=== PATIENT | male | born 1970 | race Caucasian/White ===

== ENCOUNTER 2019-06-01 22:15 | Emergency (ER) | payer SELFPAY ==
[~2019-06-01] VITALS: Ht 175.3 cm; Wt 81.6 kg
[2019-06-01 22:20] VITALS: BP 121/80
--- NOTE | 2019-06-01 22:20 | NUR ---
TO BED # 06 AMBULATORY
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
[2019-06-01] MEDS ORDERED: LIDOCAINE MPF 1% - 5 mL VIAL 5 ML ONE (22:39)
[2019-06-02] MEDS ORDERED: LIDOCAINE 1% 500 MG/50 ML VIAL INJ SCH (00:15)
[2019-06-02] MEDS ORDERED: BACITRACIN OINT 500 UNITS/GM PKT TP ONE (00:15)
--- NOTE | 2019-06-02 00:35 | NUR ---
PATIENT ELOPED FROM FACILITY. DISCHARGE INSTRUCTIONS NOT GIVEN TO PATIENT. DR. ROBERTSON NOTIFIED.
== END 2019-06-02 00:35 | disposition left against medical advice (07) ==
LOC: MED 22:15
DX: S61.211A Laceration without foreign body of left index finger without damage to nail, initial encounter (principal); I10 Essential (primary) hypertension; F17.210 Nicotine dependence, cigarettes, uncomplicated; W26.8XXA Contact with other sharp object(s), not elsewhere classified, initial encounter; Y93.89 Activity, other specified; Y92.89 Other specified places as the place of occurrence of the external cause; Y99.8 Other external cause status
CPT/HCPCS: 99281; J2001

== ENCOUNTER 2019-08-30 17:01 | Emergency (ER) | payer OTHER ==
[~2019-08-30] VITALS: Ht 170.2 cm; Wt 68.0 kg
[2019-08-30 17:01] VITALS: BP 172/70
[2019-08-30] MEDS ORDERED: IBUPROFEN 400 MG TAB PO ONE (18:25)
[2019-08-30] MEDS ORDERED: ACETAMINOPHEN 325 MG TAB PO ONE (18:25)
[2019-08-30 19:24] VITALS: BP 134/81
== END 2019-08-30 19:17 ==
LOC: MED 17:01
DX: S01.111A Laceration without foreign body of right eyelid and periocular area, initial encounter (principal); S16.1XXA Strain of muscle, fascia and tendon at neck level, initial encounter; S50.312A Abrasion of left elbow, initial encounter; F17.210 Nicotine dependence, cigarettes, uncomplicated; M54.6 Pain in thoracic spine; Z90.89 Acquired absence of other organs; W51.XXXA Accidental striking against or bumped into by another person, initial encounter; Y93.02 Activity, running; Y92.89 Other specified places as the place of occurrence of the external cause; Y99.8 Other external cause status
CPT/HCPCS: 72040; 90471; 90715; 99283

== ENCOUNTER 2021-01-07 09:53 | Emergency (ER) | payer OTHER ==
[~2021-01-07] VITALS: Ht 172.7 cm; Wt 81.6 kg
[2021-01-07 09:58] VITALS: BP 110/82
--- NOTE | 2021-01-07 10:11 | NUR ---
50 YEAR OLD MALE COMPLAINS OF THROAT PAIN ON RIGHT SIDE X 1.5 WEEKS. PATIENT DENIES PRESENCE OF BLOOD, COUGH, SOB. CLEAR LUNG SOUNDS THROUGHOUT, CLEAR TRACHEAL SOUNDS HEARD. AO4, BREATHING EVEN AND UNLABORED, SKIN WARM AND DRY. BED IN LOWEST POSITION, LOCKED, X1 SIDERAIL UP. PMH - DENIED NKA
[2021-01-07] MEDS ORDERED: PENI-321 PO (10:26)
[2021-01-07] MEDS ORDERED: NAPR-54 PO (10:27)
[2021-01-07 10:37] VITALS: BP 110/82
--- NOTE | 2021-01-07 10:38 | NUR ---
Patient ASSESSED, TREATED AND, discharged BY ERMD with v/s stable. Written and verbal after care instructions ABOUT SMOKING TOBACCO, DENTAL ABSCESS, AND TEMPOROMANDIBULAR JOINT SYNDROME given and explained. Patient alert, oriented and verbalized understanding of instructions. Ambulatory with steady gait. All questions addressed prior to discharge. ID band removed. Patient advised to follow up with PMD. Rx of NAPROXEN AND PENICILLIN V POTASSIUM given. Patient educated on indication of medication including possible reaction and side effects. Opportunity to ask questions provided and answered.
== END 2021-01-07 10:38 | disposition home or self-care (01) ==
LOC: MED 09:53
DX: M26.622 Arthralgia of left temporomandibular joint (principal); I10 Essential (primary) hypertension; F17.210 Nicotine dependence, cigarettes, uncomplicated; Z71.6 Tobacco abuse counseling; Z79.899 Other long term (current) drug therapy
CPT/HCPCS: 99283

== ENCOUNTER 2021-02-07 16:08 | Emergency (ER) | payer OTHER ==
[~2021-02-07] VITALS: Ht 175.3 cm; Wt 80.7 kg
[~2021-02-07 16:08] MED LIST: NAPR-54 PO; PENI-321 PO
[2021-02-07 16:10] VITALS: BP 149/79
[2021-02-07] MEDS ORDERED: ceFAZolin 1,000 MG VIAL ONE (16:20)
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
--- NOTE | 2021-02-07 16:26 | NUR ---
RAQUEL RODRIGUEZ, EMT, CHARGE NURSE, AND RN AT BEDSIDE AT ARRIVAL TO BED 11
[2021-02-07] MEDS ORDERED: fentaNYL citrate 0.05 MG/ML VIAL IVP ONE (16:30)
--- NOTE | 2021-02-07 16:30 | NUR ---
RAD AT BEDSIDE
--- NOTE | 2021-02-07 16:31 | NUR ---
REPORT GIVEN TO CRALYN AT [facility]. ALL QUESTIONS ANSWERED.
[2021-02-07 16:32] LABS: BASOPHILS # (AUTO) 0.1 K/uL (0.00-0.22); BASOPHILS % (AUTO) 0.7 % (0.0-2.0); EOSINOPHILS # (AUTO) 0.2 K/uL (0-0.4); EOSINOPHILS % (AUTO) 2.6 % (0.0-4.0); HEMATOCRIT 34.8 % (36-52); LYMPHOCYTES # (AUTO) 2.9 K/uL (2.0-11.5); LYMPHOCYTES % (AUTO) 39.3 % (20.5-51.1); MEAN CORPUSCULAR HEMOGLOBIN 23 pg (27-31); MEAN CORPUSCULAR HGB CONC 32 g/dL (33-37); MEAN CORPUSCULAR VOLUME 72.6 fL (80-94); MONOCYTES # (AUTO) 0.9 K/uL (0.8-1.0); NEUTROPHILS # (AUTO) 3.4 K/uL (1.8-7.7); NEUTROPHILS % (AUTO) 45.4 % (42.2-75.2); PLATELET COUNT (AUTO) 395 K/uL (140-450); RED CELL DISTRIBUTION WIDTH 25.6 % (11.6-13.7); WHITE BLOOD COUNT (AUTO) 7.4 K/uL (4.8-10.8)
--- NOTE | 2021-02-07 16:32 | NUR ---
Patient to be transferred to [facility]. Is being transferred due to HIGHER LEVEL OF CARE --TRAUMA. Receiving facility has accepting physician and available space. ER physician has signed transfer form. Patient or responsible libertarian has agreed to transfer and signed form. Patient belongings inventoried and will be sent with patient. Copy of nursing notes, lab reports, EKG, Physicians Orders and X-rays to be sent with patient. Report called to CARLYN at receiving facility. [facility] ambulance service has been called for transfer. ETA is 10 MIN.
[2021-02-07] MEDS ORDERED: NACL 0.9% 1,000 ML IV ONE (16:40)
--- NOTE | 2021-02-07 16:40 | NUR ---
PT TRASHING AROUND BED IN PAIN, UNABLE TO READ SECOND BP READING
[2021-02-07 16:44] LABS: PROTHROMBIN TIME 9.9 secs (10.8-13.4)
[2021-02-07 16:49] LABS: ALBUMIN 3.7 g/dL (3.4-5.0); ANION GAP 24.2 (8-16); CREATININE 1.3 mg/dL (0.6-1.3); POTASSIUM 3.2 mmol/L (3.5-5.1); TOTAL BILIRUBIN 1.3 mg/dL (0.0-1.0)
[2021-02-07 16:50] VITALS: BP 157/107
--- NOTE | 2021-02-07 16:50 | NUR ---
Patient to be transferred to [facility] ER. Is being transferred due to HIGHER LEVEL OF CARE. Receiving facility has accepting physician and available space. ER physician has signed transfer form. Patient or responsible alliance party has agreed to transfer and signed form. Patient belongings inventoried and will be sent with patient. Copy of nursing notes, lab reports, EKG, Physicians Orders and X-rays to be sent with patient. ETA is 10 MIN TO [facility].
== END 2021-02-07 16:50 | disposition designated cancer center or children's hospital (05) ==
LOC: MED 16:08
DX: S82.892B Other fracture of left lower leg, initial encounter for open fracture type I or II (principal); T75.4XXA Electrocution, initial encounter; W17.89XA Other fall from one level to another, initial encounter; Y93.89 Activity, other specified; Y92.89 Other specified places as the place of occurrence of the external cause; Y99.8 Other external cause status
CPT/HCPCS: 27752; 36415; 71045; 73610; 80053; 83880; 84484; 85025; 85610; 86886; 86900; 86901; 90471; 90715; 96361; 96374; 96375; 99291; J0690; J7030

== ENCOUNTER 2021-02-20 12:50 | Emergency (ER) | payer OTHER ==
[~2021-02-20] VITALS: Ht 172.7 cm; Wt 86.2 kg
[2021-02-20 13:10] VITALS: BP 142/95
--- NOTE | 2021-02-20 13:19 | NUR ---
RAQUEL BARRAGAN AT BEDSIDE.
[2021-02-20] MEDS ORDERED: MORPHINE SULFATE 4 MG/ML SYR IM ONE (13:25)
--- NOTE | 2021-02-20 13:29 | NUR ---
XR AT BEDSIDE.
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
[2021-02-20] MEDS ORDERED: ACET-8386 PO (13:54)
--- NOTE | 2021-02-20 14:38 | NUR ---
APPLIED POSTERIOR LEG AND SUGAR TONG SPLINT TO RIGHT LEG WITHOUT ANY ISSUES
[2021-02-20 14:40] VITALS: BP 142/95
--- NOTE | 2021-02-20 14:40 | NUR ---
Patient discharged with v/s stable. Written and verbal after care instructions given and explained. Patient alert, oriented and verbalized understanding of instructions. Wheel Chair Assisted with to home. All questions addressed prior to discharge. ID band removed. Patient advised to follow up with PMD. Rx of HYDROCODON-ACETAMINOPHEN 5-325 given. Patient educated on indication of medication including possible reaction and side effects. Opportunity to ask questions provided and answered.
== END 2021-02-20 14:40 | disposition home or self-care (01) ==
LOC: MED 12:50
DX: M25.571 Pain in right ankle and joints of right foot (principal); Z79.899 Other long term (current) drug therapy; Z98.890 Other specified postprocedural states
CPT/HCPCS: 29515; 73610; 96372; 99283; J2270